=== PATIENT | female | born 1965 | race Caucasian/White ===

== ENCOUNTER → 2018-09-06 12:44 | Outpatient (CLI) | payer OTHER, SELFPAY ==
[2018-09-06 13:54] LABS: Free T4 (Free Thyroxine) 1.08 ng/dl (0.76-1.46); Thyroid Stimulating Hormone 0.05 uIU/ml (0.358-3.740); Triiodothryronine (T3) Uptake 35 % (31-39)
[2018-09-06 18:00] LABS: Free Thyroxine Index 2.9 ug/dL (5.93-13.13); T4 (Thyroxine) 8.3 ug/dl (4.7-13.3)
== END ==
PROVIDERS: Visit Provider Otolaryngology
DX: E03.9 Hypothyroidism, unspecified (principal)
CPT/HCPCS: 36415; 84436; 84439; 84443; 84479

== ENCOUNTER → 2019-09-21 14:00 | Outpatient (CLI) | payer OTHER, SELFPAY ==
[2019-09-21 15:47] LABS: T4 (Thyroxine) 9.6 ug/dl (5.53-11.0); Triiodothryronine (T3) Uptake 33 % (23.5-40.5)
[2019-09-21 16:00] LABS: Thyroid Stimulating Hormone < 0.02 uIU/mL (0.465-4.68)
[2019-09-23 10:11] LABS: Triiodothyronine (T3) Total 108 ng/dL (71-180)
== END ==
PROVIDERS: Visit Provider Otolaryngology
DX: Z98.890 Other specified postprocedural states (principal); E03.9 Hypothyroidism, unspecified
CPT/HCPCS: 36415; 84436; 84443; 84479; 84480

== ENCOUNTER → 2020-09-10 11:08 | Outpatient (CLI) | payer OTHER, SELFPAY ==
[2020-09-10 13:27] LABS: Free T4 (Free Thyroxine) 1.48 ng/dl (0.78-2.19)
[2020-09-10 13:41] LABS: Thyroid Stimulating Hormone 0.02 uIU/mL (0.465-4.68)
[2020-09-11 04:08] LABS: Triiodothyronine (T3) Free 2.8 pg/mL (2.0-4.4)
== END ==
PROVIDERS: Visit Provider Otolaryngology
DX: E03.9 Hypothyroidism, unspecified (principal)
CPT/HCPCS: 36415; 84439; 84443; 84481

== ENCOUNTER → 2021-08-14 14:20 | Outpatient (CLI) | payer OTHER, SELFPAY ==
[2021-08-14 15:23] LABS: Free T4 (Free Thyroxine) 0.91 ng/dl (0.78-2.19)
[2021-08-14 15:36] LABS: Thyroid Stimulating Hormone 0.05 uIU/mL (0.465-4.68)
[2021-08-16 22:43] LABS: Thyroglobulin Level <1.0 IU/mL (0.0-0.9)
== END ==
PROVIDERS: Visit Provider Student in an Organized Health Care Education/Training Program
DX: E03.9 Hypothyroidism, unspecified (principal); Z85.850 Personal history of malignant neoplasm of thyroid
CPT/HCPCS: 36415; 84439; 84443; 86800

== ENCOUNTER → 2022-08-13 07:38 | Outpatient (CLI) | payer OTHER, SELFPAY ==
[2022-08-13 08:51] LABS: Free T4 (Free Thyroxine) 1.07 ng/dl (0.78-2.19)
[2022-08-13 09:16] LABS: Thyroid Stimulating Hormone 0.02 uIU/mL (0.465-4.68)
[2022-08-14 15:05] LABS: Thyroglobulin Level <1.0 IU/mL (0.0-0.9)
== END ==
PROVIDERS: PCP Internal Medicine; Visit Provider Nurse Practitioner
DX: E03.9 Hypothyroidism, unspecified (principal)
CPT/HCPCS: 36415; 84439; 84443; 86800

== ENCOUNTER 2023-09-16 09:37 | Outpatient (CLI) | payer OTHER, SELFPAY ==
[2023-09-16 11:55] LABS: Free T4 (Free Thyroxine) 1.34 ng/dl (0.78-2.19)
[2023-09-16 12:09] LABS: Thyroid Stimulating Hormone 0.05 uIU/mL (0.465-4.68)
== END 2023-09-16 23:59 | disposition home or self-care (01) ==
PROVIDERS: PCP Internal Medicine; Visit Provider Nurse Practitioner
DX: E03.9 Hypothyroidism, unspecified (principal)
CPT/HCPCS: 36415; 84439; 84443